=== PATIENT | female | born 1995 | race Caucasian/White ===

== ENCOUNTER 2021-12-24 15:15 | Emergency (ER) | payer MEDICAID ==
[~2021-12-24] VITALS: Ht 152.4 cm; Wt 45.9 kg
[~2021-12-24 15:15] MED LIST: ACET1TAB12 PO; CIPR-202 PO; MONT10TA21 PO; NICO-687 TD
[2021-12-24 16:12] VITALS: BP 115/74
[2021-12-24] MEDS ORDERED: cyclobenzaprine 10mg tablet PO ONE (16:25)
[2021-12-24] MEDS ORDERED: LIDO700A32 TOP (17:09)
[2021-12-24] MEDS ORDERED: NAPR-56 PO (17:09)
[2021-12-24] MEDS ORDERED: HYDR-3965 PO (17:09)
[2021-12-24] MEDS ORDERED: ipratropium/albuterol 3ml nebule NEB ONE (17:15)
[2021-12-24] MEDS ORDERED: ketorolac trometh inj. 60 MG/2 ML VIAL IM ONE (17:15)
[2021-12-24] MEDS ORDERED: HYDROcodone/acetaminophen 5mg/325mg tablet PO ONE (17:15)
== END 2021-12-24 17:53 | disposition home or self-care (01) ==
LOC: ER 15:16
DX: S29.011D Strain of muscle and tendon of front wall of thorax, subsequent encounter (principal); J45.909 Unspecified asthma, uncomplicated; X58.XXXD Exposure to other specified factors, subsequent encounter
CPT/HCPCS: 71046; 94640; 96372; 99285; J1885; 94760

== ENCOUNTER 2022-08-02 17:50 | Inpatient (IN) | payer MEDICAID ==
[~2022-08-02] VITALS: Ht 152.4 cm; Wt 43.6 kg
[~2022-08-02 17:50] MED LIST changes: +LIDO700A32 TOP
[2022-08-02 19:23] LABS: BASOPHILS % (AUTO) 0.2 % (0-1); EOSINOPHILS # (AUTO) 0.6 X10'3 (0-0.9); EOSINOPHILS % (AUTO) 4.5 % (0-6); HEMATOCRIT 43.8 % (35.0-45.0); HEMOGLOBIN 14.7 g/dl (12.0-16.0); LYMPHOCYTES # (AUTO) 2.5 X10'3 (1.1-4.8); LYMPHOCYTES % (AUTO) 18.2 % (21-51); MEAN CORPUSCULAR HEMOGLOBIN 29.4 PG (27.0-31.0); MEAN CORPUSCULAR HGB CONC 33.5 g/dL (33.0-36.5); MEAN CORPUSCULAR VOLUME 87.9 FL (78-98); MEAN PLATELET VOLUME 7.4 FL (7.4-10.4); MONOCYTES # (AUTO) 0.9 X10'3 (0-0.9); MONOCYTES % (AUTO) 6.8 % (2-12); NEUTROPHILS # (AUTO) 9.6 X10'3 (1.8-7.7); NEUTROPHILS % (AUTO) 70.3 % (42-75); PLATELET COUNT 308 X10'3 (140-440); RED BLOOD COUNT 4.98 X10'6 (4.20-5.60); RED CELL DISTRIBUTION WIDTH 13.2 % (11.5-14.5); WHITE BLOOD COUNT 13.7 X10'3 (4.5-11.0)
[2022-08-02 19:39] LABS: ALANINE AMINOTRANSFERASE 22 U/L (12-78); ALBUMIN 3.9 G/DL (3.4-5.0); ALKALINE PHOSPHATASE 57 IU/L (46-116); ANION GAP 11 (8-16); ASPARTATE AMINO TRANSFERASE 17 U/L (10-37); BILIRUBIN,TOTAL 0.3 MG/DL (0.1-1.0); BLOOD UREA NITROGEN 6 MG/DL (7-18); CHLORIDE 101 MMOL/L (99-107); GLUCOSE 95 MG/DL (70-104); LIPASE < 50 U/L (73-393); POTASSIUM 3.5 MMOL/L (3.5-5.1); SODIUM 139 MMOL/L (135-145); TOTAL CARBON DIOXIDE 27.5 MMOL/L (24-32); TOTAL PROTEIN 7.9 G/DL (6.4-8.2); eGFR > 90 ML/MIN
[2022-08-02 20:36] LABS: CLARITY,URINE SLIGHTLY CLOUDY (Clear); COLOR,URINE YELLOW (Yellow); GLUCOSE, URINE NEGATIVE (Neg); KETONES,URINE 15 mg/dl (Neg); LEUKOCYTE ESTERASE ,URINE NEGATIVE (Neg); NITRITES, URINE NEGATIVE (Neg); OCCULT BLOOD,URINE TRACE-INTACT (Neg); PH,URINE 5.5 (4.8-8.0); PROTEIN,URINE NEGATIVE (Neg); UROBILINOGEN,URINE 0.2 E.U/dL (0.2-1.0)
[2022-08-02 20:38] LABS: UA COLLECTION TYPE NON-SPECIFIED
[2022-08-02 20:42] LABS: MUCUS STRANDS MANY /LPF (Neg); SQUAMOUS EPITHELIAL CELL,UR MANY /LPF (FEW)
[2022-08-02 20:43] LABS: BACTERIA,URINE FEW /HPF (Neg); WBC,URINE 0-4 /HPF (0-4)
[2022-08-02 20:57] LABS: URINE HCG NEGATIVE (NEG)
[2022-08-02] MEDS ORDERED: normal saline 1000ML IV soln IVB ONE (23:35)
[2022-08-02] MEDS ORDERED: pantoprazole 40 MG vial IV ONE (23:35)
[2022-08-02] MEDS ORDERED: ondansetron/PF 4mg/2ml inj IV ONE (23:35)
[2022-08-03] VITALS (32 sets, daily range): BP systolic 80–104; BP diastolic 45–69
[2022-08-03] MEDS: morphine 2 MG/ML inj. syringe IV PRN ×6 (00:09→19:26)
[2022-08-03] MEDS ORDERED: iohexol 300mg/ml 100ml inj. ONE (00:21)
[2022-08-03] MEDS ORDERED: pantoprazole 40MG/NS 100ML BAG 100 ML IV ONE (00:37)
--- NOTE | 2022-08-03 02:43 | NUR ---
ultra sound at bedside
--- NOTE | 2022-08-03 03:35 | NUR ---
Assumed care of patient from JARED Valadez.
[2022-08-03] MEDS ORDERED: diphenhydrAMINE 50 mg/ml inj IV PRN (04:15)
[2022-08-03] MEDS ORDERED: ondansetron/PF 4mg/2ml inj IV PRN ×2 (04:15→11:50)
[2022-08-03] MEDS ORDERED: morphine 2 MG/ML inj. syringe IV PRN ×2 (04:15→11:50)
[2022-08-03] MEDS ORDERED: HYDROcodone/acetaminophen 5mg/325mg tablet PO PRN ×2 (04:15→16:00)
[2022-08-03] MEDS ORDERED: ringers solution, lacted 1,000 ML IV ONE (04:15)
[2022-08-03] MEDS ORDERED: diphenhydrAMINE 25mg capsule PO PRN (04:15)
[2022-08-03] MEDS ORDERED: ondansetron 4mg rapidly disintigrating tab PO PRN (04:15)
[2022-08-03] MEDS ORDERED: HYDROmorphone inj. 0.5 MG/0.5 ML DISP.SYRIN IV PRN (04:15)
[2022-08-03] MEDS ORDERED: mag hydrox/Alum hydrox/simeth 30ml oral suspension PO PRN (04:15)
[2022-08-03] MEDS ORDERED: magnesium hydroxide 30ml (MOM) UD suspension PO PRN (04:15)
[2022-08-03] MEDS ORDERED: bisacodyl 10mg suppository rectal RC PRN (04:15)
[2022-08-03] MEDS ORDERED: acetaminophen 650mg rectal suppository RC PRN (04:15)
[2022-08-03] MEDS ORDERED: acetaminophen 325mg tablet PO PRN ×2 (04:15)
--- NOTE | 2022-08-03 04:35 | NUR ---
Recieved report form break nurse that patient became hypotensive after morphine. Break nurse called Dr. Barron and recieved order for fluid bolus.
[2022-08-03] MEDS ORDERED: ALBU90AE2 INH (04:45)
[2022-08-03] MEDS: normal saline 1000ml 1,000 ML IV SCH ×2 (05:03→16:42)
[2022-08-03] MEDS ORDERED: normal saline 500ml IV soln 500 ML IV ONE (06:40)
[2022-08-03 07:34] LABS: APTT 30 SECONDS (22-32)
[2022-08-03] MEDS ORDERED: LIDOcaine 2% 10ml TOPICAL JELLY (Urojet) TP ONE (07:39)
[2022-08-03 07:45] LABS: MAGNESIUM 1.9 MG/DL (1.5-2.4); PHOSPHORUS 3.5 MG/DL (2.3-4.5)
[2022-08-03] MEDS: pantoprazole 40MG/NS 100ML BAG 100 ML IV SCH (07:48)
[2022-08-03] MEDS: docusate sod 100mg capsule PO SCH ×2 (07:49→19:20)
[2022-08-03] MEDS: nicotine 21mg patch - 24 hr TD SCH (07:49)
[2022-08-03] MEDS ORDERED: DOPamine 400mg/D5W 250ml 250 ML IV SCH (08:00)
[2022-08-03] MEDS ORDERED: BUPIVAcaine 0.5% inj/PF 30 ML ONE (08:27)
[2022-08-03] MEDS ORDERED: LIDOcaine 1% 30ml preserv. free vial ONE (08:27)
[2022-08-03] MEDS ORDERED: normal saline 1000ml 1,000 ML IV STA ×2 (08:28)
--- NOTE | 2022-08-03 08:29 | NUR ---
called DR. Vazquez for 2nd opinion re: dopamine, ordered to DC it and to administer 2L NS bolus,dc dilaudid and give morphine 1mg iv instead.MD aware of patient's hypotension, BP at this time is 94/50.Also,patient will be evaluated by Sascha Sesay today and will go to OR after lunch if surgery is indicated.We will monitor.
[2022-08-03 09:02] LABS: URINE AMPHETAMINE SCREEN NEGATIVE (Neg); URINE BARBITUATE SCREEN NEGATIVE (Neg); URINE BENZODIAZEPINES SCREEN NEGATIVE (Neg); URINE CANNABINOID SCREEN NEGATIVE (Neg); URINE COCAINE SCREEN NEGATIVE (Neg); URINE METHADONE SCREEN NEGATIVE (Neg); URINE OPIATE SCREEN NEGATIVE (Neg); URINE PHENCYCLIDINE SCREEN NEGATIVE (Neg)
[2022-08-03] MEDS ORDERED: albuterol 2.5 MG/3 ML nebule NEB PRN (09:11)
--- NOTE | 2022-08-03 09:21 | NUR ---
No zosyn in the [facility],pharmacy to deliver medication in the ed.
[2022-08-03] MEDS: piperacillin/tazo 4.5gm/100ml 100 ML IV SCH ×2 (09:31→19:20)
[2022-08-03] MEDS ORDERED: INDOCYANINE GREEN 25 MG/10 ML VIAL IV STA (10:32)
--- NOTE | 2022-08-03 10:35 | NUR ---
OR tech at bedside to take patient to OR, boyfriend at bedside.
[2022-08-03] MEDS ORDERED: meperidine/PF 25mg/ml syringe IV PRN ×2 (11:50)
[2022-08-03] MEDS ORDERED: ipratropium/albuterol 3ml nebule NEB PRN (11:50)
[2022-08-03] MEDS ORDERED: ringers solution, lacted 1,000 ML IV SCH (11:50)
[2022-08-03] MEDS ORDERED: proCHLORperazine 10 MG/2 ml inj IV PRN (11:50)
[2022-08-03] MEDS ORDERED: morphine 4 MG/ML inj SYRINge IV PRN (11:50)
[2022-08-03] MEDS ORDERED: ipratropium/albuterol 3ml nebule ONE (11:51)
[2022-08-03] MEDS ORDERED: fentaNYL/PF 50MCG/1 ML 2ML syringe ONE (12:13)
[2022-08-03] MEDS ORDERED: midazolam 1 mg/ML 2ml injection ONE (12:25)
[2022-08-03] MEDS ORDERED: BUPIVAcaine 0.5% inj/PF 30 ml vial IJ ONE (13:13)
[2022-08-03] MEDS ORDERED: sugammadex 200mg/2ml injection IV ONE (13:14)
[2022-08-03] MEDS ORDERED: LIDOcaine 2% (20mg/ml) 5ml vial ONE (13:14)
[2022-08-03] MEDS ORDERED: rocuronium 10mg/ml inj IV ONE (13:14)
[2022-08-03] MEDS ORDERED: dexamethasone sod phosphate 4mg/ml inj. ONE (13:14)
[2022-08-03] MEDS ORDERED: ondansetron/PF 4mg/2ml inj ONE (13:14)
[2022-08-03] MEDS ORDERED: propofol inj 20 ML IV ONE (13:14)
--- NOTE | 2022-08-03 13:28 | NUR ---
Received from OR via BED, accompanied by Anesthesiologist DR CHU and report given by Anesthesiologist AND TIMBER HEWER. PT DROWSY, NO S/S OF DISTRESS/DISCOMFORT, ABDOMEN W/3 BIKINI LAP SITES W/DERMROMELIA CDI. Addendum: 08/03/22 at 1623 by Annette Montano RN Amended: Links added.
--- NOTE | 2022-08-03 13:51 | NUR ---
RELIEVING NURSE FOR LUNCH. ON Q ATTACHED, STICKER MARKING NERVE BLOCK. PT DID NOT HAVE SENSATION OR MOVEMENT IN HIS TOES BUT WAS ABLE TO FEEL AND MOVE AT HIS KNEE AREA. PT DENIES PAIN AT THIS TIME. VITAL SIGNS STABLE, ICE CHIPS GIVEN Addendum: 08/03/22 at 1353 by Jyotsna Tubbs RN ENTERED IN ERROR WRONG PT
[2022-08-03] MEDS: meperidine/PF 25mg/ml syringe IV PRN ×2 (15:32→16:56)
[2022-08-03] MEDS ORDERED: HYDROcodone/acetaminophen 10/325mg tab PO PRN (16:00)
[2022-08-03] MEDS ORDERED: naloxone 0.4 mg/ml inj IV PRN (16:00)
--- NOTE | 2022-08-03 17:18 | NUR ---
PT UP TO BS FOR VOID, STEADY ON FEET W/1 STANDBY ASSIST. Report called to receiving nurse. Transferred via BED, NO Belongings, NURSES AID AT BEDSIDE TO RECEIVE PT, BLL, CALL LIGHT GIVEN, SIDE RAILS UP X 2. Special Issues communicated to receiving nurse. YES. Addendum: 08/03/22 at 1745 by Annette Montano RN Amended: Links added.
[2022-08-03] MEDS ORDERED: temazepam 15mg capsule PO PRN (21:00)
[2022-08-04 02:00] VITALS: BP 92/57
[2022-08-04] MEDS: normal saline 1000ml 1,000 ML IV SCH ×2 (05:42→10:15)
[2022-08-04 06:00] VITALS: BP 98/52
[2022-08-04 06:37] LABS: BASOPHILS % (AUTO) 0.2 % (0-1); EOSINOPHILS % (AUTO) 0.2 % (0-6); HEMATOCRIT 36.3 % (35.0-45.0); HEMOGLOBIN 11.9 g/dl (12.0-16.0); LYMPHOCYTES % (AUTO) 12.7 % (21-51); MEAN CORPUSCULAR HEMOGLOBIN 29.5 PG (27.0-31.0); MEAN CORPUSCULAR HGB CONC 32.7 g/dL (33.0-36.5); MEAN CORPUSCULAR VOLUME 90.3 FL (78-98); MEAN PLATELET VOLUME 8.1 FL (7.4-10.4); MONOCYTES # (AUTO) 1.3 X10'3 (0-0.9); MONOCYTES % (AUTO) 8.2 % (2-12); NEUTROPHILS # (AUTO) 12.4 X10'3 (1.8-7.7); NEUTROPHILS % (AUTO) 78.7 % (42-75); PLATELET COUNT 269 X10'3 (140-440); RED BLOOD COUNT 4.02 X10'6 (4.20-5.60); RED CELL DISTRIBUTION WIDTH 12.7 % (11.5-14.5); WHITE BLOOD COUNT 15.7 X10'3 (4.5-11.0)
[2022-08-04 06:53] LABS: ALANINE AMINOTRANSFERASE 51 U/L (12-78); ALBUMIN 2.2 G/DL (3.4-5.0); ALBUMIN/GLOBULIN RATIO 0.6 (1.1-1.5); ALKALINE PHOSPHATASE 63 IU/L (46-116); ANION GAP 10 (8-16); ASPARTATE AMINO TRANSFERASE 51 U/L (10-37); BILIRUBIN,TOTAL 0.2 MG/DL (0.1-1.0); BLOOD UREA NITROGEN 7 MG/DL (7-18); BUN/CREATININE RATIO 14.3 (6.6-38.0); CALCIUM 7.7 MG/DL (8.5-10.1); CHLORIDE 105 MMOL/L (99-107); CREATININE 0.49 MG/DL (0.40-0.90); GLUCOSE 172 MG/DL (70-104); POTASSIUM 4.2 MMOL/L (3.5-5.1); SODIUM 134 MMOL/L (135-145); TOTAL PROTEIN 5.6 G/DL (6.4-8.2); eGFR > 90 ML/MIN
[2022-08-04] MEDS: nicotine 21mg patch - 24 hr TD SCH (08:08)
[2022-08-04] MEDS: pantoprazole 40MG/NS 100ML BAG 100 ML IV SCH (08:08)
[2022-08-04] MEDS: docusate sod 100mg capsule PO SCH (08:08)
--- NOTE | 2022-08-04 09:00 | NUR ---
Noted low BMI using scaled wt. Most recent scaled wt in 2017 was 45kg suggesting that she maintains this low wt. Pt appears WD/WN per MD note. No edema noted. S/p laparoscopic cholecystectomy this admit, on Full liquid diet pending PO intake. Will continue to monitor. Addendum: 08/04/22 at [address] Amended: Links added.
[2022-08-04] MEDS: HYDROcodone/acetaminophen 10/325mg tab PO PRN ×2 (09:07→14:18)
[2022-08-04] MEDS: piperacillin/tazo 4.5gm/100ml 100 ML IV SCH (09:09)
[2022-08-04 10:00] VITALS: BP 89/44
[2022-08-04 11:00] VITALS: BP 89/44
[2022-08-04 11:24] VITALS: BP 95/46
[2022-08-04] MEDS ORDERED: HYDR-3965 PO ×5 (15:48→19:11)
== END 2022-08-04 17:40 | disposition home or self-care (01) | DRG 263 ==
LOC: ER 17:51 → ED HOLD 08-03 04:17 → SUR 3N 08-03 17:10
PROVIDERS: ADMIT Family Medicine; ATTEND Family Medicine
PROC: 8E0W4CZ Robotic Assisted Procedure of Trunk Region, Percutaneous Endoscopic Approach (ICD-10-PCS; 2022-08-03)
PROC: BF522Z0 Other Imaging of Gallbladder using Fluorescing Agent, Intraoperative (ICD-10-PCS; 2022-08-03)
PROC: BW211ZZ Computerized Tomography (CT Scan) of Abdomen and Pelvis using Low Osmolar Contrast (ICD-10-PCS; 2022-08-03)
PROC: 0FT44ZZ Resection of Gallbladder, Percutaneous Endoscopic Approach (ICD-10-PCS; principal; 2022-08-03 12:10)
DX: K80.00 Calculus of gallbladder with acute cholecystitis without obstruction (principal); J45.901 Unspecified asthma with (acute) exacerbation; E86.0 Dehydration; F17.210 Nicotine dependence, cigarettes, uncomplicated; E86.1 Hypovolemia; R09.02 Hypoxemia; Z79.899 Other long term (current) drug therapy
CPT/HCPCS: 36415; 71045; 74022; 74177; 76700; 80053; 80305; 81001; 81025; 83605; 83690; 83735; 83880; 84100; 85025; 85610; 85730; 94640; 94760; 96361; 96365; 96375; 99285; A4215; A4615; A4618; A7000; C1758; C9113; G0378; J1100; J2175; J2250; J2270; J2405; J2543; J2704; J3010; J3490; J7030; J7040; J7120; Q9967; S0020